=== PATIENT | female | born 1975 | race Caucasian/White ===

== ENCOUNTER 2017-08-03 12:44 | Emergency (ER) | payer OTHER ==
[~2017-08-03] VITALS: Ht 170.2 cm; Wt 54.4 kg
[~2017-08-03 12:44] MED LIST: PHENERGAN 25 MG25 M1 PO
[2017-08-03 13:24] LABS: HEMATOCRIT 42.3 % (37.0-47.0); HEMOGLOBIN 14.2 gm/dL (12.0-15.0); MCH 30.4 pg (26.0-34.0); MCHC 33.6 g/dL (28.0-37.0); MCV 90.5 fL (80.0-100.0); MPV 8.9 fl. (7.2-11.1); NUCLEATED RBCS 0 /100WBC; PLATELET COUNT* 211 thou/uL (150-400); RBC 4.68 mil/uL (4.20-5.00); RDW-CV 13.9 % (10.5-14.5); WBC 15.3 thou/uL (4.0-11.0)
[2017-08-03 13:32] LABS: CALCIUM 9.9 mg/dL (8.5-10.1); CREATININE 0.7 mg/dL (0.6-1.3); POTASSIUM 4.1 mmol/L (3.5-5.1)
[2017-08-03 13:36] LABS: TOTAL BILIRUBIN 0.3 mg/dL (<0.1-1.0); TOTAL PROTEIN 7.9 g/dL (6.4-8.2)
[2017-08-03 13:42] LABS: ABSOLUTE LYMPHOCYTES 0.9 thou/uL (0.8-5.3); ABSOLUTE MONOCYTES 1.1 thou/uL (0.0-1.2); ABSOLUTE NEUTROPHILS 13.3 thou/uL (1.6-8.1); PLATELET ESTIMATE ADEQUATE
[2017-08-03 14:27] LABS: URINE BLOOD 1+ (Negative); URINE COLOR YELLOW; URINE GLUCOSE-RANDOM NEGATIVE (Negative); URINE KETONES TRACE (Negative); URINE LEUKOCYTES-REFLEX NEGATIVE (Negative); URINE NITRITE-REFLEX NEGATIVE (Negative); URINE PROTEIN TRACE (Negative); URINE SPECIFIC GRAVITY >= 1.030 (1.005-1.030); URINE UROBILINOGEN 0.2 E.U./dl (0.2-1.0)
[2017-08-03 14:31] LABS: ICTOTEST (BILI CONFIRMATORY) Negative (Negative); URINE BILIRUBIN 1+ (Negative); URINE CLARITY HAZY
[2017-08-03 14:35] LABS: AMP/METHAMP Negative (Negative); BARBITURATES Negative (Negative); BENZODIAZEPINES Negative (Negative); COCAINE Negative (Negative); METHADONE Negative (Negative); OPIATES Negative (Negative); PCP Negative (Negative); THC POSITIVE (Negative)
[2017-08-03 14:37] LABS: CASTS None Seen /LPF (None Seen); CRYSTALS None Seen /LPF (None Seen); MUCUS 4-6 Moderate strn/LPF (None Seen); SQUAMOUS >10 Many /LPF (0-3); URINE RBC 3-10 Few /HPF (0-2); URINE WBC-REFLEX 0-5 Rare /HPF (0-5)
[2017-08-03 14:46] LABS: INFLUENZA A ANTIGEN None Detected (None Detect); INFLUENZA B ANTIGEN None Detected (None Detect)
[2017-08-03] MEDS ORDERED: ULTRAM 50MG TAB50 MG PO (15:45)
[2017-08-03] MEDS ORDERED: PROMETHAZINE HC25 M1 PO (15:45)
[2017-08-03 16:01] VITALS: BP 128/86
== END 2017-08-03 16:02 | disposition home or self-care (01) ==
LOC: M.ERS 12:44
PROVIDERS: Nurse Practitioner
DX: K52.9 Noninfective gastroenteritis and colitis, unspecified (principal); R10.84 Generalized abdominal pain

== ENCOUNTER 2017-11-13 18:21 | Emergency (ER) | payer OTHER ==
[~2017-11-13] VITALS: Ht 170.2 cm; Wt 56.2 kg
[~2017-11-13 18:21] MED LIST changes: +PROMETHAZINE HC25 M1 PO; +ULTRAM 50MG TAB50 MG PO
[2017-11-13] MEDS ORDERED: IBUPROFEN 600600 M1 PO (18:48)
[2017-11-13] MEDS ORDERED: TYLENOL EXTRA500 MG PO (18:48)
[2017-11-13] MEDS ORDERED: NAPROSYN500 M1 PO (19:00)
[2017-11-13] MEDS ORDERED: FLEXERIL PO (19:00)
[2017-11-13] MEDS ORDERED: PREDNISONE 20 M20 MG PO (19:00)
[2017-11-13 19:17] VITALS: BP 119/81
== END 2017-11-13 19:10 | disposition home or self-care (01) ==
LOC: M.ERS 18:21
DX: M54.31 Sciatica, right side (principal); Z88.6 Allergy status to analgesic agent; Z88.0 Allergy status to penicillin; F17.200 Nicotine dependence, unspecified, uncomplicated

== ENCOUNTER 2018-01-22 09:39 | Emergency (ER) | payer OTHER, MEDICAID ==
[~2018-01-22] VITALS: Ht 170.2 cm; Wt 57.6 kg
[~2018-01-22 09:39] MED LIST changes: +FLEXERIL PO; +IBUPROFEN 600600 M1 PO; +NAPROSYN500 M1 PO; +PREDNISONE 20 M20 MG PO; +TYLENOL EXTRA500 MG PO
[2018-01-22] MEDS ORDERED: NOHOMEMEDICATIONS (09:48)
[2018-01-22 09:58] LABS: URINE BLOOD NEGATIVE (Negative); URINE CLARITY CLEAR; URINE COLOR YELLOW; URINE GLUCOSE-RANDOM NEGATIVE (Negative); URINE KETONES NEGATIVE (Negative); URINE NITRITE-REFLEX NEGATIVE (Negative); URINE PROTEIN TRACE (Negative); URINE SPECIFIC GRAVITY 1.025 (1.005-1.030); URINE UROBILINOGEN 0.2 E.U./dl (0.2-1.0)
[2018-01-22 09:59] LABS: ABSOLUTE BASOPHILS 0.1 thou/uL (0.0-0.2); ABSOLUTE EOSINOPHILS 0.2 thou/uL (0.0-0.7); ABSOLUTE MONOCYTES 1.1 thou/uL (0.0-1.2); BASOPHILS 0.8 %; EOSINOPHILS 1.6 %; HEMATOCRIT 43.6 % (37.0-47.0); HEMOGLOBIN 14.5 gm/dL (12.0-15.0); LYMPHOCYTES 20.7 %; MCH 30.1 pg (26.0-34.0); MCHC 33.3 g/dL (28.0-37.0); MCV 90.5 fL (80.0-100.0); MONOCYTES 7.5 %; MPV 8.6 fl. (7.2-11.1); NUCLEATED RBCS 0 /100WBC; PLATELET COUNT* 254 thou/uL (150-400); POLYS 69.4 %; RBC 4.82 mil/uL (4.20-5.00); RDW-CV 16.4 % (10.5-14.5); WBC 14.4 thou/uL (4.0-11.0)
[2018-01-22 10:01] LABS: ICTOTEST (BILI CONFIRMATORY) Negative (Negative); URINE BILIRUBIN 1+ (Negative); URINE LEUKOCYTES-REFLEX 2+ (Negative)
[2018-01-22 10:06] LABS: CALCIUM 9.3 mg/dL (8.5-10.1); CREATININE 0.9 mg/dL (0.6-1.3); POTASSIUM 3.4 mmol/L (3.5-5.1)
[2018-01-22 10:08] LABS: BACTERIA-REFLEX 1-9 Few /HPF (None Seen); CASTS None Seen /LPF (None Seen); CRYSTALS None Seen /LPF (None Seen); MUCUS 4-6 Moderate strn/LPF (None Seen); SQUAMOUS 4-10 Moderate /LPF (0-3); URINE RBC 0-2 Rare /HPF (0-2); URINE WBC-REFLEX 6-15 Few /HPF (0-5)
[2018-01-22 10:11] LABS: TOTAL BILIRUBIN 0.3 mg/dL (<0.1-1.0); TOTAL PROTEIN 7.6 g/dL (6.4-8.2)
[2018-01-22 10:56] LABS: AMP/METHAMP Negative (Negative); BARBITURATES Negative (Negative); BENZODIAZEPINES Negative (Negative); COCAINE Negative (Negative); METHADONE Negative (Negative); OPIATES Negative (Negative); PCP Negative (Negative); THC POSITIVE (Negative)
[2018-01-22 13:38] VITALS: BP 124/66
--- NOTE | 2018-01-22 16:50 | EKG ---
[place] [address] ELECTROCARDIOGRAM REPORT Name: RALPH NATH [id number] Admission: 01/22/18 Attend Phys: Discharge: 01/22/18 Date of : 71 Report #: [id number] THIS REPORT FOR: //name// [facility] ED Test Date: 2018-01-22 Test Time: 09:57:30 Pat Name: RALPH NATH Department: Room: Gender: F Material Control Supervisor: Shital DAO : 1975 Requested By: Kirill Hunt Order Number: [id number] MD: Luis Fernando eJtt Measurements Intervals [place] Rate: 60 P: 28 OR: 141 QRS: 83 QRSD: 80 T: 64 QT: 423 QTc: 423 Interpretive Statements Sinus rhythm Probable anterior infarct, old No previous ECG available for comparison Electronically Signed On 01-22-2018 16:50:19 CDT by Luis Fernando Jett [email or web address] <ELECTRONICALLY SIGNED> By: Luis Fernando Jett MD, [facility] 01/22/18 [id number] Luis Fernando Jett MD, FACC /EPI
== END 2018-01-22 13:40 | disposition short-term general hospital (02) ==
LOC: M.ERS 09:39
PROVIDERS: Family Medicine
DX: N83.201 Unspecified ovarian cyst, right side (principal); R11.2 Nausea with vomiting, unspecified; F17.210 Nicotine dependence, cigarettes, uncomplicated; Z88.1 Allergy status to other antibiotic agents; Z88.0 Allergy status to penicillin

== ENCOUNTER 2019-12-31 15:31 | Emergency (ER) | payer OTHER ==
[~2019-12-31] VITALS: Ht 170.2 cm; Wt 57.6 kg
[~2019-12-31 15:31] MED LIST changes: +NOHOMEMEDICATIONS
[2019-12-31] MEDS ORDERED: MEDROLDOSEPACK PO (17:30)
[2019-12-31] MEDS ORDERED: NORCO 5-325 TA1 EAC2 PO (17:30)
[2019-12-31] MEDS ORDERED: NAPROSYN500 MG PO (17:30)
[2019-12-31 17:46] VITALS: BP 144/82
== END 2019-12-31 17:47 | disposition home or self-care (01) ==
LOC: M.ERS 15:31
DX: M54.32 Sciatica, left side (principal); F17.210 Nicotine dependence, cigarettes, uncomplicated; Z88.1 Allergy status to other antibiotic agents; Z88.0 Allergy status to penicillin

== ENCOUNTER 2021-04-06 14:51 | Emergency (ER) | payer OTHER ==
[~2021-04-06] VITALS: Ht 170.2 cm; Wt 54.4 kg
[~2021-04-06 14:51] MED LIST changes: +MEDROLDOSEPACK PO; +NAPROSYN500 MG PO; +NORCO 5-325 TA1 EAC2 PO
[2021-04-06] MEDS ORDERED: IMITREX 50 MG T50 MG PO (18:09)
[2021-04-06] MEDS ORDERED: ZOFRAN ODT4 MG PO (18:09)
[2021-04-06 18:28] LABS: INFLUENZA A ANTIGEN Negative (Negative); INFLUENZA B ANTIGEN Negative (Negative)
[2021-04-06 18:38] VITALS: BP 129/87
== END 2021-04-06 18:39 | disposition home or self-care (01) ==
LOC: M.ERS 14:51
PROVIDERS: Nurse Practitioner Psychiatric/Mental Health
DX: G43.909 Migraine, unspecified, not intractable, without status migrainosus (principal); Z20.822 Contact with and (suspected) exposure to COVID-19; J02.9 Acute pharyngitis, unspecified; F17.210 Nicotine dependence, cigarettes, uncomplicated; Z88.0 Allergy status to penicillin